=== PATIENT | female | born 1980 | race Caucasian/White ===

== ENCOUNTER 2017-10-13 20:50 | Emergency (ER) | payer OTHER ==
[~2017-10-13] VITALS: Ht 170.2 cm; Wt 55.0 kg
[~2017-10-13 20:50] MED LIST: AMOXICILLIN500 M1 PO; DAILY VALUE1 EACH PO; IRON; MOTRIN400 MG PO; MOTRIN800 MG PO; NOHOMEMEDS; ULTRAM50 MG PO; VIT C
[2017-10-13] MEDS ORDERED: AUGMENTIN875 MG PO (22:30)
[2017-10-13] MEDS ORDERED: MOTRIN600 MG PO (22:30)
[2017-10-13] MEDS ORDERED: ULTRAM50 MG PO (22:30)
[2017-10-13 23:29] VITALS: BP 124/80
== END 2017-10-13 23:29 | disposition home or self-care (01) ==
LOC: EME → EDSEX 20:50 → EME 20:50 → EDBD 20:50 → EME 23:29
DX: S81.811A Laceration without foreign body, right lower leg, initial encounter (principal); S41.111A Laceration without foreign body of right upper arm, initial encounter; W54.0XXA Bitten by dog, initial encounter; Z20.3 Contact with and (suspected) exposure to rabies; Z23 Encounter for immunization; Z29.14 Encounter for prophylactic rabies immune globulin; Z72.0 Tobacco use
CPT/HCPCS: 99281; 99285

== ENCOUNTER 2017-12-10 05:21 | Emergency (ER) | payer OTHER ==
[~2017-12-10] VITALS: Ht 167.6 cm; Wt 54.4 kg
[~2017-12-10 05:21] MED LIST changes: +AUGMENTIN875 MG PO; +MOTRIN600 MG PO
[2017-12-10 10:05] VITALS: BP 91/58
== END 2017-12-10 10:43 | disposition home or self-care (01) ==
LOC: EME 05:21
DX: F10.129 Alcohol abuse with intoxication, unspecified (principal); D64.9 Anemia, unspecified; Z98.51 Tubal ligation status; F17.200 Nicotine dependence, unspecified, uncomplicated
CPT/HCPCS: 99281; 99284

== ENCOUNTER 2018-02-25 23:10 | Inpatient (IN) | payer OTHER ==
[~2018-02-25] VITALS: Ht 167.6 cm; Wt 49.0 kg
[2018-02-26 00:22] LABS: HEMATOCRIT 43.2 % (36.0-46.0); HEMOGLOBIN 15.5 G/DL (11.9-15.5); MCHC 35.9 G/DL (30.0-36.0); MCV 97.5 FL (83-99); PLATELET COUNT 199 K/uL (156-360); RBC DIS.WIDTH-CV 13.3 % (11.8-14.6); RBC DIS.WIDTH-SD 47.7 % (39-53); RED BLOOD COUNT 4.43 M/uL (3.80-5.20); WHITE BLOOD COUNT 13.7 K/uL (4.1-10.2)
[2018-02-26] MEDS ORDERED: VITAMIN D2000 UNI1 PO (00:35)
[2018-02-26] MEDS ORDERED: ASCORBIC ACID100 MG PO (00:35)
[2018-02-26] MEDS ORDERED: CALCIUM500 M4 PO (00:36)
[2018-02-26] MEDS ORDERED: IRON18 MG PO (00:36)
[2018-02-26 00:43] LABS: TROP-I INTERPRETATION NEGATIVE; TROPONIN-I < 0.01 ng/mL (0.0-0.30)
[2018-02-26 01:40] LABS: CHLORIDE 97 mEq/L (99-109); SODIUM 140 mEq/L (136-147)
[2018-02-26 01:42] LABS: GLUCOSE 121 mg/dL (70-99)
[2018-02-26 01:45] LABS: SERUM ETHYL ALCOHOL < 10 mg/dL
[2018-02-26 01:46] LABS: CREATININE 0.6 mg/dL (0.6-1.3); GFR ESTIMATE (CALCULATED) > 59 mL/min/
[2018-02-26 01:47] LABS: UREA NITROGEN (BUN) 3 mg/dL (9-23)
[2018-02-26 01:49] LABS: LIPASE 548 U/L (1.0-51.0)
[2018-02-26 01:55] LABS: QUANTITATIVE HCG < 4.0 MIU/ML
[2018-02-26 02:07] LABS: POTASSIUM 2.4 mEq/L (3.7-5.4)
[2018-02-26 02:34] LABS: ALBUMIN 3.8 g/dL (3.2-4.8)
[2018-02-26 02:37] LABS: TOTAL PROTEIN 6.1 g/dL (6.4-8.3)
[2018-02-26 02:39] LABS: TOTAL BILIRUBIN 1.1 mg/dL (0.0-1.0)
[2018-02-26 02:40] LABS: ALKALINE PHOSPHATASE 99 IU/L (3-129)
[2018-02-26 02:42] LABS: AST (GOT) 21 IU/L (2-34); DIRECT BILIRUBIN 0.6 mg/dL (0.0-0.3)
[2018-02-26 02:43] LABS: ALT (GPT) 15 IU/L (3-49)
[2018-02-26 03:39] LABS: ACETAMINOPHEN (TYLENOL) < 10 mcg/mL (10-30); SALICYLATE < 5.0 MG/DL (15-30)
[2018-02-26 03:43] LABS: MAGNESIUM 1.1 mg/dL (1.3-2.7)
[2018-02-26 04:26] VITALS: BP 141/86
[2018-02-26 06:49] LABS: ALBUMIN 3.3 G/DL (3.2-4.8); ALKALINE PHOSPHATASE 82 IU/L (3-129); ALT (GPT) 12 IU/L (3-49); AST (GOT) 26 IU/L (2-34); CHLORIDE 102 MEQ/L (99-109); CREATININE 0.6 MG/DL (0.6-1.3); GFR ESTIMATE (CALCULATED) > 59 mL/min/; GLUCOSE 132 mg/dL (70-99); SODIUM 141 MEQ/L (136-147); TOTAL BILIRUBIN 0.9 MG/DL (0.0-1.0); TOTAL PROTEIN 5.1 G/DL (6.4-8.3); TRIGLYCERIDES 68 MG/DL (Normal: <150); UREA NITROGEN (BUN) 3 mg/dL (9-23)
[2018-02-26 06:50] LABS: BASOPHIL (%) 0.3 % (0-1); EOSINOPHIL (%) 0.2 % (0-5); HEMATOCRIT 40.4 % (36.0-46.0); HEMOGLOBIN 14.3 G/DL (11.9-15.5); IMMATURE GRANULOCYTE (%) 0.6 % (0.0-0.7); LYMPHOCYTE (%) 10.2 % (15-42); LYMPHOCYTE COUNT 1.3 K/uL (1.0-2.8); MCH 35.4 PG (29.0-34.0); MCHC 35.4 G/DL (30.0-36.0); MONOCYTE (%) 9.9 % (3-12); MONOCYTE COUNT 1.2 K/uL (0-0.8); NEUTROPHIL (%) 78.8 % (45-76); NEUTROPHIL COUNT 9.7 K/uL (1.8-6.4); PLATELET COUNT 178 K/uL (156-360); RBC DIS.WIDTH-CV 13.3 % (11.8-14.6); RBC DIS.WIDTH-SD 49.4 % (39-53); RED BLOOD COUNT 4.04 M/uL (3.80-5.20); WHITE BLOOD COUNT 12.3 K/uL (4.1-10.2)
[2018-02-26 06:51] LABS: TROP-I INTERPRETATION NEGATIVE; TROPONIN-I < 0.01 ng/mL (0.0-0.30)
[2018-02-26 07:49] VITALS: BP 128/99
[2018-02-26 13:02] LABS: TROP-I INTERPRETATION NEGATIVE; TROPONIN-I < 0.01 ng/mL (0.0-0.30)
[2018-02-26 16:02] VITALS: BP 118/87
[2018-02-26 17:39] LABS: APPEARANCE TURBID ((CLEAR)); BILIRUBIN NEGATIVE; BLOOD LARGE; GLUCOSE (STRIP) NEGATIVE; KETONES NEGATIVE; LEUKOCYTES NEGATIVE; NITRITE NEGATIVE; PROTEIN (STRIP) 100; SPECIFIC GRAVITY 1.024 (1.000-1.030); UROBILINOGEN 0.2 MG/DL (0.2-1.0)
[2018-02-26 17:40] LABS: COLOR YELLOW ((YELLOW))
[2018-02-26 17:41] LABS: EPITHELIAL CELLS NONE SEEN /HPF; RED BLOOD CELLS 0-5 /HPF (0-5); WHITE BLOOD CELLS TNTC /HPF (0-5)
[2018-02-26 17:42] LABS: BACTERIA 4+ /HPF; MUCUS NONE SEEN /LPF; UCUL ADDED? YES
[2018-02-27 00:04] VITALS: BP 130/71
[2018-02-27 06:54] LABS: BASOPHIL (%) 0.3 % (0-1); EOSINOPHIL (%) 0.9 % (0-5); EOSINOPHIL COUNT 0.1 K/uL (0-0.3); HEMATOCRIT 37.4 % (36.0-46.0); HEMOGLOBIN 13.1 G/DL (11.9-15.5); IMMATURE GRANULOCYTE (%) 0.3 % (0.0-0.7); LYMPHOCYTE (%) 18.7 % (15-42); LYMPHOCYTE COUNT 1.9 K/uL (1.0-2.8); MCH 34.7 PG (29.0-34.0); MCV 98.9 FL (83-99); MONOCYTE (%) 9.9 % (3-12); NEUTROPHIL (%) 69.9 % (45-76); NEUTROPHIL COUNT 7.2 K/uL (1.8-6.4); PLATELET COUNT 147 K/uL (156-360); RBC DIS.WIDTH-CV 13.3 % (11.8-14.6); RBC DIS.WIDTH-SD 48.3 % (39-53); RED BLOOD COUNT 3.78 M/uL (3.80-5.20); WHITE BLOOD COUNT 10.3 K/uL (4.1-10.2)
[2018-02-27 07:18] LABS: ALBUMIN 3.1 G/DL (3.2-4.8); ALKALINE PHOSPHATASE 79 IU/L (3-129); ALT (GPT) 11 IU/L (3-49); AST (GOT) 18 IU/L (2-34); CHLORIDE 102 MEQ/L (99-109); CREATININE 0.4 MG/DL (0.6-1.3); GFR ESTIMATE (CALCULATED) > 59 mL/min/; GLUCOSE 117 mg/dL (70-99); MAGNESIUM 2.1 mg/dl (1.3-2.7); SODIUM 140 MEQ/L (136-147); TOTAL PROTEIN 5.3 G/DL (6.4-8.3); UREA NITROGEN (BUN) 2 mg/dL (9-23)
[2018-02-27 07:22] VITALS: BP 132/84
[2018-02-27 07:25] LABS: TOTAL BILIRUBIN 0.6 MG/DL (0.0-1.0)
[2018-02-27 15:30] VITALS: BP 119/66
[2018-02-27 17:17] LABS: LIPASE 438 U/L (1.0-51.0)
[2018-02-28] VITALS: BP 130/66
[2018-02-28 06:41] LABS: BASOPHIL (%) 0.4 % (0-1); EOSINOPHIL (%) 1.7 % (0-5); EOSINOPHIL COUNT 0.2 K/uL (0-0.3); HEMATOCRIT 36.8 % (36.0-46.0); HEMOGLOBIN 12.7 G/DL (11.9-15.5); IMMATURE GRANULOCYTE (%) 0.4 % (0.0-0.7); LYMPHOCYTE (%) 25.2 % (15-42); LYMPHOCYTE COUNT 2.4 K/uL (1.0-2.8); MCH 34.9 PG (29.0-34.0); MCHC 34.5 G/DL (30.0-36.0); MCV 101.1 FL (83-99); MONOCYTE (%) 10.3 % (3-12); NEUTROPHIL COUNT 5.9 K/uL (1.8-6.4); PLATELET COUNT 130 K/uL (156-360); RBC DIS.WIDTH-CV 13.3 % (11.8-14.6); RBC DIS.WIDTH-SD 49.6 % (39-53); RED BLOOD COUNT 3.64 M/uL (3.80-5.20); WHITE BLOOD COUNT 9.6 K/uL (4.1-10.2)
[2018-02-28 07:01] LABS: CHLORIDE 106 MEQ/L (99-109); POTASSIUM 3.5 MEQ/L (3.7-5.4); SODIUM 142 MEQ/L (136-147)
[2018-02-28 07:19] LABS: ALBUMIN 2.9 G/DL (3.2-4.8); ALKALINE PHOSPHATASE 75 IU/L (3-129); ALT (GPT) 10 IU/L (3-49); AST (GOT) 18 IU/L (2-34); CREATININE 0.4 MG/DL (0.6-1.3); GFR ESTIMATE (CALCULATED) > 59 mL/min/; GLUCOSE 103 mg/dL (70-99); TOTAL BILIRUBIN 0.5 MG/DL (0.0-1.0); TOTAL PROTEIN 5.2 G/DL (6.4-8.3); UREA NITROGEN (BUN) 2 mg/dL (9-23)
[2018-02-28 07:34] VITALS: BP 116/62
[2018-02-28 15:17] VITALS: BP 125/76
[2018-03-01 00:04] VITALS: BP 117/89
[2018-03-01 06:46] LABS: HEMATOCRIT 35.1 % (36.0-46.0); HEMOGLOBIN 12.1 G/DL (11.9-15.5); MCH 35.1 PG (29.0-34.0); MCHC 34.5 G/DL (30.0-36.0); MCV 101.7 FL (83-99); PLATELET COUNT 128 K/uL (156-360); RBC DIS.WIDTH-CV 13.5 % (11.8-14.6); RBC DIS.WIDTH-SD 50.4 % (39-53); RED BLOOD COUNT 3.45 M/uL (3.80-5.20); WHITE BLOOD COUNT 8.2 K/uL (4.1-10.2)
[2018-03-01 07:11] LABS: CHLORIDE 107 MEQ/L (99-109); CREATININE 0.5 MG/DL (0.6-1.3); GFR ESTIMATE (CALCULATED) > 59 mL/min/; GLUCOSE 85 mg/dL (70-99); MAGNESIUM 1.9 mg/dl (1.3-2.7); SODIUM 143 MEQ/L (136-147); UREA NITROGEN (BUN) 4 mg/dL (9-23)
[2018-03-01 08:14] VITALS: BP 108/69
[2018-03-01 11:15] VITALS: BP 113/67
[2018-03-01] MEDS ORDERED: FAMOTIDINE20 MG PO (12:00)
[2018-03-01] MEDS ORDERED: FOLIC ACID1 MG PO (12:00)
[2018-03-01] MEDS ORDERED: THIAMINE HCL100 MG PO (12:01)
== END 2018-03-01 12:51 | disposition home or self-care (01) | DRG 439 ==
LOC: EME 23:10 → EDOF 02-26 02:50 → 5SOUTH 02-26 02:50 → ENRESERV 02-26 02:58 → 5SOUTH 02-26 04:19 → ENPENDDIS 03-01 12:21 → 5SOUTH 03-01 12:51
PROVIDERS: Emergency Medicine; Hospitalist; Internal Medicine
DX: K85.90 Acute pancreatitis without necrosis or infection, unspecified (principal); E87.6 Hypokalemia; R94.31 Abnormal electrocardiogram [ECG] [EKG]; D64.9 Anemia, unspecified; F17.200 Nicotine dependence, unspecified, uncomplicated; F10.10 Alcohol abuse, uncomplicated; Z82.5 Family history of asthma and other chronic lower respiratory diseases; Z80.8 Family history of malignant neoplasm of other organs or systems; I45.10 Unspecified right bundle-branch block; Z68.1 Body mass index [BMI] 19.9 or less, adult; F12.10 Cannabis abuse, uncomplicated; R05 Cough
CPT/HCPCS: 71046; 74177; 80048; 80053; 80076; 80306 90; 81003; 82330; 83690; 83735; 84100; 84132 91; 84478; 84484; 84702; 85025; 85027; 87086; 93005; 94640; 94640 76; 99202; 99281; 99285; G0480; J0610; J1644; J2405; J3010; J3411; J3475; J3480; J7030; J7050; S0028